=== PATIENT | male | born 1950 | race Caucasian/White ===

== ENCOUNTER 2019-01-13 17:22 | Emergency (ER) | payer OTHER ==
[2019-01-13 17:28] VITALS: BP 132/80; PULSE 68; TEMP 98; BMI 23.6
[2019-01-13 18:57] LABS: EOS % 3.5 % (0-4.5); HEMOGLOBIN 12.6 GM/dL (11.7-16.9); LYMPH % 24.2 % (8-40); MCH 33.5 pg (25.7-33.7); MCHC 33.9 g/dl (32.0-35.9); MEAN CELL VOLUME 98.6 fl (80-96); MEAN PLT VOLUME 10.4 fl (7.5-11.1); MONO % 13.2 % (3.8-10.2); NEUT % 58.1 % (42.8-82.8); PLATELET COUNT 143 K/MM3 (134-434); RBC 3.75 M/mm3 (4.00-5.60); RDW 13.2 % (11.9-15.9); WHITE BLOOD COUNT 4.9 K/mm3 (4.0-10.0)
[2019-01-13 19:01] LABS: EPI CELLS 0.4 /HPF (0-5/HPF); HYALINE CASTS 0 /lpf (0-8); PH,URINE 6.5 (5.0-8.0); URINE APPEARANCE CLEAR; URINE BACTERIA 0.7 /hpf (NEGATIVE); URINE BILIRUBIN NEGATIVE (NEGATIVE); URINE COLOR DK YELLOW; URINE GLUCOSE (UA) NEGATIVE (NEGATIVE); URINE KETONE NEGATIVE (NEGATIVE); URINE LEUK ESTERASE NEGATIVE (NEGATIVE); URINE NITRITE NEGATIVE (NEGATIVE); URINE PROTEIN NEGATIVE (NEGATIVE); URINE RBC 40 /hpf (0-4); URINE WBC 1 /hpf (0-5)
--- NOTE | 2019-01-13 19:09 | PDOC ---
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 specialist) Exam Limitations: No Limitations <MelissaKayley richard - Last Filed: 01/13/19 19:36> - General Chief Complaint: Hematuria Stated Complaint: HEMATURIA Time Seen by Provider: 01/13/19 17:59 Past History <Holly Horn Thaococo - Last Filed: 01/13/19 19:12> - Past Medical History COPD: No Seizures: Yes - Surgical History Abdominal Surgery: Yes (lawson colon , resection x 2) - Immunization History Td Vaccination: Yes Immunization Up to Date: Yes - Psycho Social/Smoking Cessation Hx Smoking Status: No Smoking History: Never smoked Have you smoked in the past 12 months: No Number of Cigarettes Smoked Daily: 0 Hx Alcohol Use: No Drug/Substance Use Hx: No Substance Use Type: None <Kayley Torres - Last Filed: 01/13/19 19:36> - Past Medical History Allergies/Adverse Reactions: Allergies Allergy/AdvReac Type Severity Reaction Status Date / Time strawberry Allergy Verified 01/13/19 17:28 STRAWBERRIES Allergy Uncoded 01/13/19 17:28 Home Medications: Ambulatory Orders Acetaminophen [Tylenol] 650 mg PO ASDIR 08/18/15 Dgzgs-F-Diskwtjupmynv [Beano] 0 unit PO TID 08/18/15 Chlordiazepoxide [Librium -] 10 mg PO BID 08/18/15 Cholecalciferol (Vitamin D3) [Vitamin D3] 1,000 unit PO DAILY 08/18/15 Multivitamins [Multivit ([facility] Formulary)] 1 tab PO DAILY 08/18/15 Polyethylene Glycol 3350 [Glycolax] 119 gm PO ASDIR 08/18/15 Gabapentin [Neurontin] 300 mg PO TID #90 capsule 08/21/15 Lamotrigine [Lamictal] 100 mg PO AM #30 tablet 08/21/15 levETIRAcetam [Keppra -] 500 mg PO BID #60 tablet 08/21/15 Lamotrigine [Lamictal] 75 mg PO HS 09/18/15 *Physical Exam - Vital Signs Last Vital Signs Temp Pulse Resp BP Pulse Ox 98 F 68 18 132/80 99 01/13/19 17:25 01/13/19 17:25 01/13/19 17:25 01/13/19 17:25 01/13/19 17:25 <Holly Horn - Last Filed: 01/13/19 19:12> - Vital Signs Last Vital Signs Temp Pulse Resp BP Pulse Ox 98 F 68 18 132/80 99 01/13/19 17:25 01/13/19 17:25 01/13/19 17:25 01/13/19 17:25 01/13/19 17:25 - Physical Exam General Appearance: No: Apparent Distress Respiratory/Chest: positive: Lungs Clear, Normal Breath Sounds. negative: Respiratory Distress Cardiovascular: positive: Regular Rhythm, Regular Rate, S1, S2. negative: Murmur Gastrointestinal/Abdominal: positive: Normal Bowel Sounds, Soft. negative: Tender, Distended, Guarding, Rebound Musculoskeletal: negative: CVA Tenderness Neurologic: positive: Alert <Kayley Torres - Last Filed: 01/13/19 19:36> ED Treatment Course - LABORATORY CBC & Chemistry Diagram: 01/13/19 18:45 01/13/19 18:45 - ADDITIONAL ORDERS Additional order review: Laboratory Results 01/13/19 18:45 Urine Color Dk yellow Urine Appearance Clear Urine pH 6.5 Ur Specific [place] 1.014 Urine Protein Negative Urine Glucose (UA) Negative Urine Ketones Negative Urine Blood 2+ H Urine Nitrite Negative Urine Bilirubin Negative Urine Urobilinogen 1.0 Ur Leukocyte Esterase Negative Urine WBC (Auto) 1 Urine RBC (Auto) 40 Urine Casts (Auto) 0 U Epithel Cells (Auto) 0.4 Urine Bacteria (Auto) 0.7 01/13/19 18:45 RBC 3.75 L MCV 98.6 H MCHC 33.9 RDW 13.2 MPV 10.4 D Neutrophils % 58.1 Lymphocytes % 24.2 Monocytes % 13.2 H Eosinophils % 3.5 D Basophils % 1.0 <Holly Horn - Last Filed: 01/13/19 19:12> - LABORATORY CBC & Chemistry Diagram: 01/13/19 18:45 01/13/19 18:45 - ADDITIONAL ORDERS Additional order review: Laboratory Results 01/13/19 18:45 Urine Color Dk yellow Urine Appearance Clear Urine pH 6.5 Ur Specific [place] 1.014 Urine Protein Negative Urine Glucose (UA) Negative Urine Ketones Negative Urine Blood 2+ H Urine Nitrite Negative Urine Bilirubin Negative Urine Urobilinogen 1.0 Ur Leukocyte Esterase Negative Urine WBC (Auto) 1 Urine RBC (Auto) 40 Urine Casts (Auto) 0 U Epithel Cells (Auto) 0.4 Urine Bacteria (Auto) 0.7 01/13/19 18:45 RBC 3.75 L MCV 98.6 H MCHC 33.9 RDW 13.2 MPV 10.4 D Neutrophils % 58.1 Lymphocytes % 24.2 Monocytes % 13.2 H Eosinophils % 3.5 D Basophils % 1.0 <Kayley Torres - Last Filed: 01/13/19 19:36> Medical Decision Making - Medical Decision Making 01/13/19 19:12 The patient was seen and evaluated in conjunction with midlevel provider under my direct supervision, ancillary studies were reviewed. I agree with the plan as outlined with EDGARD Torres. HPI, workup/dispo as outlined. VS reviewed, wnl. 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 Patient has not noted before and neither has the powerhouse mechanic supervisor. Denies fever, sob, cp, abd/flank pain, n/v, dysuria. Denies prior kidney issues or surgeries. Painless hematuria Plan: Labs, UA, UCx 01/13/19 19:14 UA reviewed 2+ blood noted, no sign of infection Not suspicious for kidney stones based on exam D/W Dr. Horn - will likely need outpatient urology f/u for cystoscopy Pending results of CMP 01/13/19 19:17 CMP unremarkable Plan of care d/w aide and patient stable for dc 01/13/19 19:34 <Kayley Torres - Last Filed: 01/13/19 19:36> Discharge <Holly Horn - Last Filed: 01/13/19 19:12> - Discharge Information Problems reviewed: Yes - Admission No - Additional Discharge Information Prescription Drug Monitoring Program (I-STOP) results: I-STOP not reviewed <Kayley Torres - Last Filed: 01/13/19 19:36> - Discharge Information Clinical Impression/Diagnosis: Hematuria Qualifiers: Hematuria type: asymptomatic microscopic Qualified Code(s): R31.21 - Asymptomatic microscopic hematuria Condition: Stable Disposition: HOME - Follow up/Referral Referrals: Danae Marie MD [Primary Care Provider] - 2 Days Dago Borja MD., MD [Staff Physician] - 2 Days - Patient Discharge Instructions Patient Printed Discharge Instructions: DI for Hematuria Additional Instructions: Thank you for choosing [facility]. It was a pleasure taking care of you. You were referred to urologist for further evaluation of your symptoms. Return to the Emergency Department if your symptoms worsen or persist, you have fever, shortness of breath, chest pain, severe abdominal pain, vomiting, increased amount of blood in urine or other concerning symptoms. - Post Discharge Activity
[2019-01-13 19:31] LABS: ALBUMIN 3.8 g/dl (3.4-5.0); BILIRUBIN,TOTAL 0.2 mg/dL (0.2-1); CALCIUM 8.6 mg/dL (8.5-10.1); CREATININE 0.8 mg/dL (0.55-1.3); POTASSIUM 3.9 mmol/L (3.5-5.1)
== END 2019-01-13 19:43 | disposition home or self-care (01) ==
LOC: JER 17:22
DX: R31.21 Asymptomatic microscopic hematuria (principal); G40.909 Epilepsy, unspecified, not intractable, without status epilepticus; F70 Mild intellectual disabilities; F84.0 Autistic disorder; Z87.19 Personal history of other diseases of the digestive system; Z91.018 Allergy to other foods
CPT/HCPCS: 36415; 80053; 81003; 85025; 87086; 99281-25

== ENCOUNTER 2019-09-05 12:11 | Emergency (ER) | payer OTHER ==
[2019-09-05 12:36] VITALS: TEMP 97.3; BMI 24.4
[2019-09-05 12:58] LABS: HEMATOCRIT 34.9 % (35.4-49); MCHC 34.4 g/dl (32.0-35.9); MEAN CELL VOLUME 98.7 fl (80-96); MEAN PLT VOLUME 10.2 fl (7.5-11.1); PLATELET COUNT 162 K/MM3 (134-434); RBC 3.54 M/mm3 (4.00-5.60); RDW 13.9 % (11.9-15.9); WHITE BLOOD COUNT 5.2 K/mm3 (4.0-10.0)
--- NOTE | 2019-09-05 12:59 | PDOC ---
History of Present Illness - General Chief Complaint: Syncope/Near Syncope Stated Complaint: SYNCOPE Time Seen by Provider: 09/05/19 12:24 - History of Present Illness Initial Comments: 69 yo male with PMH of anemia, hematuria, DVT, seizures and cognitive impairment was brought in by EMS with a presyncopal episode approximately 1 hour ago. He was in the waiting room for a follow up urology appointment when he began feeling uneasy, light headed, and sat on the ground without losing consciousness or any head trauma. He has a normal appetite but endorses having diarrhea. His sugar was measured at 150 and 1L LR fluids were given in route to the ED. He denies any nausea, vomiting, diaphoresis, cp, sob. He denies tongue biting, bowel/bladder incontinence. 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 09/05/19 14:19 Past History - Medical History Allergies/Adverse Reactions: Allergies Allergy/AdvReac Type Severity Reaction Status Date / Time strawberry Allergy Verified 09/05/19 12:16 STRAWBERRIES Allergy Uncoded 09/05/19 12:16 Home Medications: Ambulatory Orders Acetaminophen [Tylenol] 650 mg PO ASDIR 08/18/15 Kxpsa-J-Ampztzkdsinby [Beano] 0 unit PO TID 08/18/15 Chlordiazepoxide [Librium -] 10 mg PO BID 08/18/15 Cholecalciferol (Vitamin D3) [Vitamin D3] 1,000 unit PO DAILY 08/18/15 Multivitamins [Multivit ([facility] Formulary)] 1 tab PO DAILY 08/18/15 Polyethylene Glycol 3350 [Glycolax] 119 gm PO ASDIR 08/18/15 Bisacodyl 5 mg PO DAILY 07/25/19 Escitalopram Oxalate [Lexapro -] 5 mg PO DAILY 07/25/19 Lamotrigine [Lamictal] 200 mg PO BID 07/25/19 Linaclotide [Linzess] 145 mcg PO DAILY 07/25/19 Midazolam [Nayzilam] 5 mg NS DAILY PRN 07/25/19 Simethicone 80 mg PO TID 07/25/19 Tamsulosin HCl 0.4 mg PO DAILY 07/25/19 Vitamin B Complex [Super B-50 Complex] 1 each PO DAILY 07/25/19 COPD: No GI Disorders: Yes (MEGACOLON) Seizures: Yes (PETIT MAL SEIZURE DISORDER) - Surgical History Abdominal Surgery: Yes (lawson colon , resection x 2) - Immunization History Td Vaccination: Yes Immunization Up to Date: Yes - Psycho-Social/Smoking History Smoking Status: No Smoking History: Never smoked Have you smoked in the past 12 months: No Number of Cigarettes Smoked Daily: 0 - Substance Abuse Hx (Audit-C & DAST Scrn) How often the patient has a drink containing alcohol: Never Score: In Men: 4 or > Positive; In Women: 3 or > Positive: 0 Screen Result (Pos requires Nsg. Audit-10AR): Negative Review of Systems - Review of Systems Able to Perform ROS?: Yes Constitutional: No: Chills, Fever, Loss of Appetite HEENTM: No: Recent change in vision, Double Vision Respiratory: No: Cough, Shortness of Breath Cardiac (ROS): Yes: Other (pres). No: Chest Pain, Edema, Palpitations ABD/GI: Yes: Diarrhea. No: Nausea, Rectal Bleeding, Vomiting : Yes: Hematuria. No: Dysuria, Discharge Musculoskeletal: No: Muscle Pain, Muscle Weakness Integumentary: No: Erythema Neurological: No: Headache, Paresthesia, Tingling Psychiatric: No: Anxiety, Depression, Mood Swings Endocrine: No: Intolerance to Cold, Intolerance to Heat *Physical Exam - Vital Signs Last Vital Signs Temp Pulse Resp BP Pulse Ox 97.3 F L 56 L 16 106/62 98 09/05/19 12:18 09/05/19 12:18 09/05/19 12:18 09/05/19 12:18 09/05/19 12:18 - Physical Exam General Appearance: Yes: Appropriately Dressed. No: Apparent Distress HEENT: positive: [place], Normal Voice Respiratory/Chest: positive: Lungs Clear, Normal Breath Sounds. negative: Respiratory Distress Cardiovascular: positive: Regular Rhythm, Regular Rate, S1, S2, Bradycardia. negative: Edema, JVD, Murmur Gastrointestinal/Abdominal: positive: Flat, Soft, Other (vertical scar from abdominal surgery for megacolon). negative: Tender Male Genitalia: positive: normal genitalia, other (indwelling catheter without hematuria) Lymphatic: negative: Adenopathy, Tenderness Extremity: positive: Normal Capillary Refill, Normal Range of Motion Integumentary: positive: Normal Color, Dry, Warm Neurologic: positive: campaign marketing specialist II-XII NML intact, Fully Oriented, Alert, Normal Mood/Affect ED Treatment Course - LABORATORY CBC & Chemistry Diagram: 09/05/19 12:31 09/05/19 12:31 - RADIOLOGY Radiology Studies Ordered: Category Date Time Status CHEST PA & LAT [RAD] Stat Radiology 09/05/19 12:45 Ordered Medical Decision Making - Medical Decision Making 69 yo male with PMH of anemia, DVT, seizures and cognitive impairment brought in by EMS for a presyncopal event. His sugar was measured at 150 and was given 2L LR fluids. CBC and CMP were benign. X-ray was normal. His orthostatic test was positive with a HR rise of 10 and a BP drop of 18 systolic points and 10 diastolic points. He was bradycardic on admission at 57 bpm but since improved to 70s. He is resting comfortable without symptoms and tolerating oral intake. I discussed his management with Dr. Marie's coverage who informed me to hold his laxatives and stool softners to decrease his diarrhea which we believe is the cause of his dehydration. He was able to walk without feeling faint and repeat BP was 138/84 and negative for orthostatics. He is being discharged to follow up with PCP and Urologist. Discharge - Discharge Information Problems reviewed: Yes Clinical Impression/Diagnosis: Hypovolemia dehydration, Orthostatic hypotension, Near syncope Condition: Stable Disposition: HOME - Admission No - Follow up/Referral Referrals: Danae Marie MD [Primary Care Provider] - - Patient Discharge Instructions Patient Printed Discharge Instructions: DI for Syncope in Adults (Fainting), DI for Dehydration -- Adult Additional Instructions: You were treated today for a presyncopal event and treated with fluids. Labs and imaging did not show any abnormalities. Follow up with Dr. Marie for monitoring of your symptoms within 1 week. Follow up with your urologist to remove your almazan catheter. Return to the ED if symptoms worsen or condition changes (ie nausea, vomiting, dizziness, vision changes, lightheaded, faint, collapse). Discontinue taking your stool softners and laxatives until you see your pcp. - Post Discharge Activity
[2019-09-05 13:42] LABS: ALBUMIN 3.5 g/dl (3.4-5.0); ALK PHOS 89 U/L (45-117); ANION GAP 10 MMOL/L (8-16); BILIRUBIN,TOTAL 0.4 mg/dL (0.2-1); BLOOD UREA NITROGEN 11.3 mg/dL (7-18); CALCIUM 8.7 mg/dL (8.5-10.1); CHLORIDE 104 mmol/L (98-107); CO2 27 mmol/L (21-32); CREATININE 0.9 mg/dL (0.55-1.3); GLUCOSE,RANDOM 100 mg/dL (74-106); POTASSIUM 3.5 mmol/L (3.5-5.1); SGOT/AST 23 U/L (15-37); SGPT/ALT 26 U/L (13-61); SODIUM 140 mmol/L (136-145); TOT PROT 6.9 g/dl (6.4-8.2)
[2019-09-05] MEDS ORDERED: LACTATED RINGERS SOLUTION 1000 ML INFUS.BAG IV ONE (13:57)
--- NOTE | 2019-09-05 14:16 | PDOC ---
Attending Attestation - Resident Resident Name: Alma Izquierdo - ED Attending Attestation I have performed the following: I have examined & evaluated the patient, The case was reviewed & discussed with the resident, I agree w/resident's findings & plan - HPI HPI: 09/05/19 14:11 69y/o M cognitive delay, DVT, seizures p/w near syncope. Pt went to a routine post-op urology appointment and while standing in hallway with his aide became light-headed and slumped to the ground. no LOC, no injury, no cp/palp/sob. pt was assisted up and presents for evaluation. no recent dehydration/infection process. no f/c. no cp. aide states pt has had similar near syncope in the past - Physicial Exam PE: 09/05/19 14:14 vss, alert, seated in stretcher drinking milk atraumatic, neck supple s1s2 rrr, no murmurs appreciated ctab, abd benign b/l lower leg nonpitting edema, no calf ttp neuro nonfocal psych limited but wnl - Medical Decision Making 09/05/19 14:15 69y/o M with near syncope while standing in hallways. ? vagal v orthostatic, no actual LOC or injury. no red flags on history/exam. ? dehydration. orthostatics abnormal by BP labs, ekg iv fluids reassess and dispo accordingly 09/05/19 14:37 no anemia, labs negative including trop. reassess and discuss dispo with Dr. Marie Heart Score/ECG Review #1 ECG reviewed & interpreted by me at: 12:11 General ECG Interpretation: Sinus Rhythm, Normal Rate (56), Normal Intervals (qtc [id number]), No acute ischemic changes Discharge - Discharge Information Problems reviewed: Yes Clinical Impression/Diagnosis: Hypovolemia dehydration, Orthostatic hypotension, Near syncope Condition: Stable Disposition: HOME - Follow up/Referral Referrals: Danae Marie MD [Primary Care Provider] - - Patient Discharge Instructions Patient Printed Discharge Instructions: DI for Syncope in Adults (Fainting), DI for Dehydration -- Adult Additional Instructions: You were treated today for a presyncopal event and treated with fluids. Labs and imaging did not show any abnormalities. Follow up with Dr. Marie for monitoring of your symptoms within 1 week. Return to the ED if symptoms worsen or condition changes (ie nausea, vomiting, dizziness, vision changes, lightheaded, faint, collapse). - Post Discharge Activity
[2019-09-05 16:23] VITALS: BP 138/83; PULSE 78
== END 2019-09-05 16:23 | disposition home or self-care (01) ==
LOC: JER 12:11
DX: I95.1 Orthostatic hypotension (principal); E86.0 Dehydration; E86.1 Hypovolemia
CPT/HCPCS: 36415; 71046-TC-FY; 80053; 82550; 84484; 85027; 99285-25

== ENCOUNTER 2020-10-22 19:00 | Emergency (ER) | payer OTHER ==
[2020-10-22 19:10] VITALS: BP 136/75; PULSE 72; TEMP 97.4; BMI 21.7
[2020-10-22] MEDS ORDERED: ACETAMINOPHEN 500 MG TABLET (FP) PO ONE (20:20)
[2020-10-22] MEDS ORDERED: ACETAMINOPHEN 500 MG TABLET (FP) ONE (20:22)
== END 2020-10-22 21:33 | disposition home or self-care (01) ==
LOC: FER 19:00
DX: S42.291A Other displaced fracture of upper end of right humerus, initial encounter for closed fracture (principal); W18.2XXA Fall in (into) shower or empty bathtub, initial encounter; Y93.E1 Activity, personal bathing and showering
CPT/HCPCS: 70450-TC; 73030-TC-RT-FY; 99284-25

== ENCOUNTER → 2020-11-03 | Emergency (ER) | payer OTHER ==
[2020-11-03 10:48] VITALS: BP 142/84; PULSE 65; TEMP 97.4; BMI 21.8
== END ==
LOC: FER 10:40
DX: S42.201A Unspecified fracture of upper end of right humerus, initial encounter for closed fracture (principal); I80.8 Phlebitis and thrombophlebitis of other sites; Y99.9 Unspecified external cause status
CPT/HCPCS: 73030-TC-RT-FY; 73070-TC-RT-FY; 93971; 99284-25

== ENCOUNTER 2022-06-08 13:20 | Inpatient (IN) | payer OTHER ==
[2022-06-08] MEDS ORDERED: ACETAMINOPHEN 1000 MG/100 ML BAG IVPB ONE (14:16)
[2022-06-08] MEDS ORDERED: ACETAMINOPHEN INJECTION 100 ML IVPB ONE (14:23)
[2022-06-08 15:10] LABS: INR 1.11 (0.83-1.09); PROTHROMBIN TIME (PATIENT) 12.8 SEC (9.7-13.0)
[2022-06-08 15:11] LABS: HEMATOCRIT 39.8 % (35.4-49); HEMOGLOBIN 13.5 G/dL (11.7-16.9); MCH 33.7 pg (25.7-33.7); MCHC 33.8 g/dl (32.0-35.9); MEAN CELL VOLUME 99.7 fl (80-96); PLATELET COUNT 135.7 10^3/uL (134-434); RBC 3.99 10^6/uL (4.00-5.60); RDW 15.1 % (11.9-15.9); WHITE BLOOD COUNT 7.1 10^3/uL (4.0-10.8)
[2022-06-08 15:16] LABS: ADD RBC MORPHOLOGY YES
[2022-06-08 15:52] LABS: EPITHELIAL CELLS RARE /hpf
[2022-06-08 15:52] LABS: ANISOCYTOSIS 1+; PLATELET ESTIMATE ADEQUATE
[2022-06-08 15:53] LABS: URINE HYALINE CAST 0-2 /lpf; URINE MUCUS 1+
[2022-06-08 16:17] LABS: ALBUMIN 4.1 g/dl (3.4-5.0); BILIRUBIN,TOTAL 0.5 mg/dl (0.2-1); CALCIUM 8.8 mg/dl (8.5-10); CREATININE 1.2 mg/dl (0.55-1.3); TOT PROT 7.2 g/dl (6.4-8.2)
[2022-06-08] MEDS ORDERED: DOCUSATE SODIUM 100 MG CAPSULE (FP) PO PRN (23:08)
[2022-06-08] MEDS ORDERED: ACETAMINOPHEN 1000 MG/100 ML BAG IVPB PRN (23:11)
[2022-06-08] MEDS ORDERED: DEXTROSE 5%-NORMAL SALINE 1,000 ML IV SCH (23:15)
[2022-06-09] MEDS: lamoTRIgine 100 MG TABLET PO SCH ×3 (05:10→22:21)
[2022-06-09] MEDS: chlordiazePOXIDE 5 MG CAPSULE PO SCH ×4 (05:10→22:21)
[2022-06-09 06:05] VITALS: BMI 22.8
[2022-06-09] MEDS ORDERED: TAMSULOSIN HCL 0.4 MG CAP PO SCH (08:30)
[2022-06-09 09:26] LABS: EOS % 0.5 % (0-4.5); HEMATOCRIT 34.2 % (35.4-49); LYMPH % 24.7 % (8-40); MCH 33.1 pg (25.7-33.7); MEAN CELL VOLUME 94.6 fl (80-96); MEAN PLT VOLUME 10.8 fl (7.5-11.1); NEUT % 60.8 % (42.8-82.8); PLATELET COUNT 132 10^3/uL (134-434); RBC 3.61 M/mm3 (4.00-5.60); WHITE BLOOD COUNT 4.7 K/mm3 (4.0-10.0)
[2022-06-09 09:54] LABS: CALCIUM 8.6 mg/dL (8.5-10.1)
[2022-06-09 09:55] LABS: BLOOD UREA NITROGEN 25.3 mg/dL (7-18)
[2022-06-09 09:58] LABS: CREATININE 0.9 mg/dL (0.55-1.3)
[2022-06-09] MEDS ORDERED: CALCIUM (OYSTER SHELL) 500 MG TABLET (FP) PO SCH (10:00)
[2022-06-09] MEDS ORDERED: POLYETHYLENE GLYCOL (HEALTHYLAX) 3350 17 GM PACKET PO SCH (10:00)
[2022-06-09] MEDS ORDERED: PROPOFOL 40 ML ONE (14:59)
[2022-06-09] MEDS ORDERED: LIDOCAINE HCL 2% 100 MG/5 ML DISP.SYRIN ONE (15:43)
[2022-06-09] MEDS ORDERED: LIDOCAINE HCL 2% JELLY 10 ML CARTRIDGE TP ONE (15:56)
[2022-06-09] MEDS ORDERED: DOCUSATE SODIUM 100 MG CAPSULE (FP) PO PRN (17:31)
[2022-06-09] MEDS ORDERED: ACETAMINOPHEN 1000 MG/100 ML BAG IVPB PRN (17:31)
[2022-06-09] MEDS: DEXTROSE 5%-NORMAL SALINE 1,000 ML IV SCH (20:00)
[2022-06-09] MEDS ORDERED: ACETAMINOPHEN 325 MG TABLET (FP) PO PRN ×2 (23:08)
[2022-06-10] MEDS: chlordiazePOXIDE 5 MG CAPSULE PO SCH ×3 (06:14→21:37)
[2022-06-10] MEDS ORDERED: CALCIUM (OYSTER SHELL) 500 MG TABLET (FP) PO SCH (10:00)
[2022-06-10 10:20] LABS: HEMOGLOBIN 11.8 GM/dL (11.7-16.9); MCH 33.4 pg (25.7-33.7); MCHC 34.7 g/dl (32.0-35.9); MEAN CELL VOLUME 96.2 fl (80-96); MEAN PLT VOLUME 10.6 fl (7.5-11.1); PLATELET COUNT 122 10^3/uL (134-434); RBC 3.54 M/mm3 (4.00-5.60); RDW 14.3 % (11.9-15.9); WHITE BLOOD COUNT 5.1 K/mm3 (4.0-10.0)
[2022-06-10 10:51] LABS: CALCIUM 8.4 mg/dL (8.5-10.1)
[2022-06-10] MEDS: lamoTRIgine 100 MG TABLET PO SCH ×2 (10:52→21:37)
[2022-06-10] MEDS: TAMSULOSIN HCL 0.4 MG CAP PO SCH (10:53)
[2022-06-10] MEDS: POLYETHYLENE GLYCOL (HEALTHYLAX) 3350 17 GM PACKET PO SCH (10:53)
[2022-06-10 10:55] LABS: CREATININE 0.8 mg/dL (0.55-1.3)
[2022-06-10] MEDS ORDERED: LORazepam 2 MG/ML SDV VIAL IVPUSH PRN (15:19)
[2022-06-10] MEDS ORDERED: lamoTRIgine 100 MG TABLET PO ONE (15:51)
[2022-06-10] MEDS: DEXTROSE 5%-NORMAL SALINE 1,000 ML IV SCH (16:46)
[2022-06-10] MEDS ORDERED: MUPIROCIN 2% TOPICAL OINTMENT FOR DECOLONIZATION NS SCH (22:00)
[2022-06-10] MEDS ORDERED: CHLORHEXIDINE GLUCONATE 4% CLEANSER FOR DECOLONIZATION TP SCH (22:00)
[2022-06-11] MEDS ORDERED: levETIRAcetam 500 MG/5 ML INJECTION VIAL IVPB ONE (01:07)
[2022-06-11] MEDS: chlordiazePOXIDE 5 MG CAPSULE PO SCH ×3 (05:52→21:28)
[2022-06-11] MEDS: TAMSULOSIN HCL 0.4 MG CAP PO SCH (08:58)
[2022-06-11 10:22] LABS: CALCIUM 8.3 mg/dL (8.5-10.1)
[2022-06-11 10:23] LABS: MAGNESIUM 1.9 mg/dL (1.8-2.4)
[2022-06-11 10:25] LABS: CREATININE 0.8 mg/dL (0.55-1.3)
[2022-06-11 10:27] LABS: BILIRUBIN,TOTAL 0.4 mg/dL (0.2-1); TOT PROT 5.9 g/dl (6.4-8.2)
[2022-06-11 10:32] LABS: BLOOD UREA NITROGEN 17.3 mg/dL (7-18)
[2022-06-11] MEDS: POLYETHYLENE GLYCOL (HEALTHYLAX) 3350 17 GM PACKET PO SCH (10:51)
[2022-06-11] MEDS: lamoTRIgine 100 MG TABLET PO SCH ×2 (10:51→21:28)
[2022-06-11] MEDS: CALCIUM (OYSTER SHELL) 500 MG TABLET (FP) PO SCH ×2 (10:51→21:28)
[2022-06-11] MEDS: DEXTROSE 5%-NORMAL SALINE 1,000 ML IV SCH (17:35)
[2022-06-12] MEDS: chlordiazePOXIDE 5 MG CAPSULE PO SCH ×3 (05:55→21:51)
[2022-06-12] MEDS: TAMSULOSIN HCL 0.4 MG CAP PO SCH (08:44)
[2022-06-12] MEDS: CALCIUM (OYSTER SHELL) 500 MG TABLET (FP) PO SCH ×2 (10:59→21:51)
[2022-06-12] MEDS: lamoTRIgine 100 MG TABLET PO SCH ×2 (10:59→21:51)
[2022-06-12] MEDS: POLYETHYLENE GLYCOL (HEALTHYLAX) 3350 17 GM PACKET PO SCH (10:59)
[2022-06-12] MEDS: DEXTROSE 5%-NORMAL SALINE 1,000 ML IV SCH (21:50)
[2022-06-13] MEDS: chlordiazePOXIDE 5 MG CAPSULE PO SCH (05:43)
[2022-06-13 08:57] VITALS: RESP 18
[2022-06-13] MEDS: lamoTRIgine 100 MG TABLET PO SCH (09:01)
[2022-06-13] MEDS: POLYETHYLENE GLYCOL (HEALTHYLAX) 3350 17 GM PACKET PO SCH (09:01)
[2022-06-13] MEDS: CALCIUM (OYSTER SHELL) 500 MG TABLET (FP) PO SCH (09:01)
[2022-06-13] MEDS: TAMSULOSIN HCL 0.4 MG CAP PO SCH (09:01)
[2022-06-13 13:43] VITALS: BP 138/65; PULSE 81; TEMP 97.9
== END 2022-06-13 13:00 | disposition home or self-care (01) | DRG 699 ==
LOC: FER 13:20 → INTOOBSV 06-09 04:50 → J8W 06-09 04:50 → OBSVTOIN 06-10 11:28 → J4S 06-10 13:02
PROVIDERS: ADMIT Urology; ATTEND Family Medicine
PROC: 0TP98DZ Removal of Intraluminal Device from Ureter, Via Natural or Artificial Opening Endoscopic (ICD-10-PCS; principal; 2022-06-09 15:00)
DX: T83.123A Displacement of other urinary stents, initial encounter (principal); F84.0 Autistic disorder; N13.4 Hydroureter; G40.909 Epilepsy, unspecified, not intractable, without status epilepticus; E83.51 Hypocalcemia; K59.00 Constipation, unspecified; Y83.8 Other surgical procedures as the cause of abnormal reaction of the patient, or of later complication, without mention of misadventure at the time of the procedure
CPT/HCPCS: 0241U-QW; 36415; 70450-TC; 71045-TC-FY; 74177-TC; 80048; 80053; 80175; 81003; 81015; 82550; 82962; 83690; 83735; 84484; 85025; 85027; 85610; 85730; 86850; 86900; 86901; 87086; 93005; 93010; 97116-GP; 97161-GP; 99285-25; G0378; Q9967

== ENCOUNTER 2022-06-18 10:54 | Emergency (ER) | payer OTHER ==
[2022-06-18 11:01] VITALS: BP 108/67; PULSE 66; RESP 16; TEMP 97.7; BMI 22.8
== END 2022-06-18 11:35 | disposition home or self-care (01) ==
LOC: FER 10:54
DX: Z04.3 Encounter for examination and observation following other accident (principal)
CPT/HCPCS: 99282-25

== ENCOUNTER 2022-08-13 12:46 | Emergency (ER) | payer OTHER ==
[2022-08-13 13:21] VITALS: BP 134/75; PULSE 58; RESP 16; TEMP 97.3; BMI 20.5
== END 2022-08-13 15:38 | disposition home or self-care (01) ==
LOC: JERFT 12:46
DX: S00.03XA Contusion of scalp, initial encounter (principal); W22.8XXA Striking against or struck by other objects, initial encounter; Y92.89 Other specified places as the place of occurrence of the external cause
CPT/HCPCS: 70450-TC; 99284-25

== ENCOUNTER 2023-01-31 13:18 | Emergency (ER) | payer OTHER ==
[2023-01-31 13:27] VITALS: BP 106/67; PULSE 72; RESP 16; TEMP 98.2; BMI 21.4
== END 2023-01-31 13:50 | disposition home or self-care (01) ==
LOC: SUPCPDRO 13:18 → FER 13:18
DX: Z76.0 Encounter for issue of repeat prescription (principal)
CPT/HCPCS: 99283-25